=== PATIENT | male | born 1945 | race Asian ===

== ENCOUNTER 2019-03-03 12:33 | Emergency (ER) | payer OTHER ==
[~2019-03-03] VITALS: Ht 167.6 cm; Wt 80.7 kg
[2019-03-03 12:47] VITALS: Ht 167.6 cm; Wt 80.7 kg
[2019-03-03 13:39] VITALS: BP 151/82
== END 2019-03-03 13:39 | disposition home or self-care (01) ==
LOC: ED 12:33
DX: S20.211A Contusion of right front wall of thorax, initial encounter (principal); Z98.890 Other specified postprocedural states; Z88.8 Allergy status to other drugs, medicaments and biological substances; W22.8XXA Striking against or struck by other objects, initial encounter; Y93.89 Activity, other specified; Y92.89 Other specified places as the place of occurrence of the external cause; Y99.8 Other external cause status